=== PATIENT | female | born 1980 ===

== ENCOUNTER 2024-10-14 12:15 | Day surgery (SDC) | payer BC ==
[~2024-10-14] VITALS: Ht 170.2 cm; Wt 115.5 kg
[~2024-10-14 12:15] MED LIST: Bupivacaine 0.5% W/EPI 1:200000 SDV 30 ML Vial ONE; Lactated Ringer's 1,000 ML IV ONE; Midazolam HCl 1MG / ML 2ML Vial ONE; Rocuronium Bromide 10 MG/ML 5ML Injection IV ONE; Ropivacaine 0.5% HCL/PF 5 MG/ML 30ML Vial ONE; propofoL 20 ML IV ONE
[2024-10-14] MEDS ORDERED: Lactated Ringer's 1,000 ML IV ONE ×2 (12:50→15:37)
[2024-10-14] MEDS ORDERED: EUTHYROX175 MCG PO (12:59)
[2024-10-14] MEDS ORDERED: FLUT1DIS5 INH (13:00)
[2024-10-14] MEDS ORDERED: PANT40 PO (13:00)
[2024-10-14] MEDS ORDERED: ZYRTEC10 M2 PO (13:02)
[2024-10-14] MEDS ORDERED: Amlodipine-Ben1 EACH PO (13:02)
[2024-10-14] MEDS ORDERED: THERA-D2000 UNIT PO (13:03)
[2024-10-14] MEDS ORDERED: Flonase 0.05% N16 GM (13:03)
[2024-10-14] MEDS ORDERED: OSTEO BIFLEX (13:04)
[2024-10-14] MEDS ORDERED: C COMPLEX1000 M1 PO (13:04)
[2024-10-14] MEDS ORDERED: Vitamin B Comple1 EA PO (13:05)
[2024-10-14] MEDS ORDERED: CeFAZolin Sodium 2,000 MG VIAL ONE (13:05)
[2024-10-14] MEDS ORDERED: MAGNESIUM GLU27.5 M1 PO (13:05)
--- NOTE | 2024-10-14 13:32 | NUR ---
10/14/24 1332 Heriberto Ritchie TIME OUT AT 1326. DR AMAYA PERFORMS NERVE BLOCK. PT TOLERATED WELL.
[2024-10-14] MEDS ORDERED: Ketorolac Tromethamine 30mg Vial ONE (13:41)
[2024-10-14] MEDS ORDERED: Dexamethasone Sod Phos 10 MG/ML 1ML VIAL ONE (13:42)
[2024-10-14] MEDS ORDERED: Ondansetron HCl 2 MG / ML 2ML Vial ONE (13:42)
[2024-10-14] MEDS ORDERED: Sugammadex Sodium 200 MG/2ML SDV (100 MG/ML) ONE (14:41)
[2024-10-14] MEDS ORDERED: HYDROmorphone HCl/Pf 1MG SYR ONE (15:15)
[2024-10-14] MEDS ORDERED: FentaNYL Citrate 50 MCG/ML 2 ML Injection ONE (15:35)
--- NOTE | 2024-10-14 15:36 | NUR ---
10/14/24 1536 Kim Riley ICE PACK PLACED UNDER KNEE, RIGHT LEG ELEVATED.
[2024-10-14 15:41] VITALS: BP 125/87
[2024-10-14] MEDS ORDERED: OxyCODONE 5 mg/Acetamin 325 mg TABLET ONE (16:10)
== END 2024-10-14 16:35 | disposition home or self-care (01) ==
LOC: ORSCSDS 12:15
PROVIDERS: Podiatrist Foot & Ankle Surgery
PROC: 0LSV0ZZ Reposition Right Foot Tendon, Open Approach (ICD-10-PCS; principal; 2024-10-14 13:30)
PROC: 0LQV0ZZ Repair Right Foot Tendon, Open Approach (ICD-10-PCS; principal; 2024-10-14 13:30)
DX: M76.71 Peroneal tendinitis, right leg (principal); I10 Essential (primary) hypertension; J45.909 Unspecified asthma, uncomplicated; K21.9 Gastro-esophageal reflux disease without esophagitis; E03.9 Hypothyroidism, unspecified; E66.9 Obesity, unspecified; Z68.39 Body mass index [BMI] 39.0-39.9, adult; Z79.899 Other long term (current) drug therapy
CPT/HCPCS: A9270; C1713; J0690; J1100; J1171; J1885; J2250; J2405; J2704; J2795; J3010; J7120